=== PATIENT | female | born 1950 | race Caucasian/White ===

== ENCOUNTER 2023-09-27 11:52 | Emergency (ER) | payer MEDICARE, BC ==
[~2023-09-27] VITALS: Ht 154.9 cm; Wt 73.6 kg
[2023-09-27 11:57] VITALS: BP 128/66; PULSE 83; RESP 18; TEMP 97.8; O2SAT 98
[2023-09-27] MEDS ORDERED: IBUP-1984 PO (13:58)
--- NOTE | 2023-09-27 14:18 | NUR ---
MARINE MAMMAL TRAINER ASSESSMENT REVIEWED BY OLEG R[facility]; CS; APPROVED
== END 2023-09-27 14:53 | disposition home or self-care (01) ==
LOC: ER 11:53
DX: H00.15 Chalazion left lower eyelid (principal)
CPT/HCPCS: 99282

== ENCOUNTER 2024-02-08 14:41 | Emergency (ER) | payer MEDICARE, BC ==
[~2024-02-08] VITALS: Ht 152.4 cm; Wt 73.0 kg
[2024-02-08 14:53] VITALS: TEMP 99.5
[2024-02-08] MEDS ORDERED: CYCL-1 PO (16:59)
[2024-02-08] MEDS ORDERED: IBUP-1984 PO (16:59)
[2024-02-08] MEDS ORDERED: OXYC-145 PO (17:04)
[2024-02-08] MEDS: morphine 2 MG/ML inj. syringe IM ONE (17:49)
[2024-02-08] MEDS: ondansetron 4mg rapidly disintigrating tab PO ONE (17:50)
[2024-02-08 18:16] VITALS: BP 143/171; PULSE 64; RESP 16; O2SAT 97
== END 2024-02-08 18:20 | disposition home or self-care (01) ==
LOC: ER 14:43
DX: S42.151A Displaced fracture of neck of scapula, right shoulder, initial encounter for closed fracture (principal); W19.XXXA Unspecified fall, initial encounter; Y93.89 Activity, other specified; Y92.89 Other specified places as the place of occurrence of the external cause; Y99.8 Other external cause status
CPT/HCPCS: 71046; 71100; 72100; 72170; 73010; 96372; 99284; J2270; 99285; A4565

== ENCOUNTER → 2024-03-03 | Outpatient (CLI) | payer MEDICARE, BC ==
[~2024-03-03] MED LIST: CYCL-1 PO; OXYC-145 PO
== END | disposition home or self-care (01) ==
LOC: RAD 10:10
PROVIDERS: ATTEND Registered Nurse
DX: S22.39XA Fracture of one rib, unspecified side, initial encounter for closed fracture (principal); S22.008A Other fracture of unspecified thoracic vertebra, initial encounter for closed fracture; M54.51 Vertebrogenic low back pain; X58.XXXA Exposure to other specified factors, initial encounter; Y93.89 Activity, other specified; Y92.89 Other specified places as the place of occurrence of the external cause; Y99.8 Other external cause status
CPT/HCPCS: 71046; 72074

== ENCOUNTER 2025-11-02 18:49 | Inpatient (IN) | payer MEDICARE, BC ==
[~2025-11-02] VITALS: Ht 152.4 cm; Wt 55.9 kg
[2025-11-02] MEDS: normal saline 1000ML IV soln IVB ONE (20:10)
[2025-11-02] MEDS: ondansetron/PF 4mg/2ml inj IV ONE (20:17)
[2025-11-02 20:23] LABS: LEUKOCYTE ESTERASE ,URINE NEGATIVE (Neg); NITRITES, URINE NEGATIVE (Neg); OCCULT BLOOD,URINE LARGE (Neg)
[2025-11-02 20:25] LABS: MEAN PLATELET VOLUME 9.1 FL (7.4-10.4); RED CELL DISTRIBUTION WIDTH 13.3 % (11.5-14.5)
[2025-11-02 20:25] LABS: UA COLLECTION TYPE FOLEY CATH
[2025-11-02 20:46] LABS: MUCUS STRANDS MANY /LPF (Neg); SQUAMOUS EPITHELIAL CELL,UR FEW /LPF (FEW)
[2025-11-02 21:09] LABS: CREATININE 0.77 MG/DL (0.40-0.90); TOTAL CARBON DIOXIDE 25.6 MMOL/L (24-32); eCRCL 47 ML/MIN; eGFR 73 ML/MIN
[2025-11-02] MEDS: potassium Cl 20 mEq SR tablet PO STA (21:20)
[2025-11-02] MEDS: CefTRIAXone/D5W-Rocephin 1gm 50 ML IV ONE (23:34)
[2025-11-02] MEDS: morphine 4 MG/ML inj SYRINge IV ONE (23:39)
[2025-11-03] VITALS (8 sets, daily range): BP systolic 92–131; BP diastolic 50–73; PULSE 62–67; RESP 16–22; TEMP 97.4–98.9; O2SAT 95–100
[2025-11-03] MEDS: morphine 4 MG/ML inj SYRINge IV ONE (00:47)
[2025-11-03] MEDS ORDERED: iohexol 300mg/ml 100ml inj. ONE (00:58)
[2025-11-03] MEDS: ondansetron/PF 4mg/2ml inj IV ONE (01:02)
--- NOTE | 2025-11-03 01:59 | RADIOLOGY REPORT ---
Exam: CT CT ABDOMEN PELVIS W/ IV CONTRAST History: lower abd pain, hematuria Comparison Study: DI PELVIS,LIMITED 1-2 VIEWS on DOS: 02/08/24 TECHNIQUE: A digital yoga teacher image was obtained. During the uneventful, intravenous administration of contrast material, multislice data acquisition was obtained through the abdomen and pelvis. The data set was subsequently reconstructed into multiplanar reformats. RADIATION DOSE: CTDI vol 9.4 mGy. DLP 428.9 mGy.cm Findings: Lungs: Mild basilar atelectasis/ scarring. Liver: Unremarkable. Spleen: Scattered too small to characterize low attenuating splenic lesions. Pancreas: Unremarkable. Gallbladder: Unremarkable. Adrenals: Unremarkable Kidneys: 4 mm calculus situated in the distal right ureter near the ureterovesicular junction with moderate upstream hydroureteronephrosis and right perinephric stranding. Pelvic Viscera: Decompressed urinary bladder with a Kong catheter. Vasculature: Atherosclerotic aortoiliac calcification. Retroperitoneum: Unremarkable. Bowel: Colonic diverticulosis without CT evidence of diverticulitis. No bowel obstruction. Small hiatal hernia. Musculoskeletal: Chronic appearing lumbar compression deformities with multilevel vertebroplasty changes. Soft tissues: Unremarkable Impression: 1. 4 mm calculus situated in the distal right ureter near the ureterovesicular junction with moderate upstream hydroureteronephrosis and right perinephric stranding. 2. Additional findings as detailed.
[2025-11-03] MEDS ORDERED: ASPI-611 PO (02:31)
[2025-11-03] MEDS ORDERED: HYDR-3964 PO (02:31)
--- NOTE | 2025-11-03 03:24 | Physician Documentation ---
History of Present Illness ~ Chief Complaint: Urinary Retention Stated Complaint: URINARY RETENTION Time Seen by MD: 19:53 Primary Medical Doctor: DR BENTLEY Mode of Arrival: POV HPI This is a 75-year-old female, very pleasant, who presents for evaluation of inability to urinate, urinary frequency, urinary urgency, suprapubic bilateral flank abdominal pain. This symptom has been present for the last three days. Reports nausea and vomiting for the last two days. No obvious trigger provocation. The particular palliating or aggravating factors. Denies any fever or chills. The pain is sharp. She does not feel as radiating or migratory. Denies chest pain or difficulty breathing. No concern for tobacco, alcohol or illicit substances. Medication Reconciliation Allergies: Coded Allergies: No Known Allergies (Unverified , 11/02/25) Scheduled Aspirin (Aspir 81), 1 TAB PO DAILY, (Reported) Scheduled PRN Hydrocodone Bit/Acetaminophen (Hydrocodon-Acetaminophen 5-325), 1 TAB PO TID PRN for pain, (Reported) Discontinued Medications Cyclobenzaprine* (Cyclobenzaprine*), 1 TAB PO Q8H Discontinued Reason: patient no longer taking Oxycodone HCl/Acetaminophen (Percocet 5-325 mg Tablet), 1 TAB PO TID PRN PRN for glenoid fracture Discontinued Reason: patient no longer taking Past Medical History Smoking Status: Never smoker Review of Systems ROS 10 point review of systems was performed and unless noted above in HPI is negative for acute process/complaint. Physical Exam Vital Signs: Temperature: 98.1, Source: Oral, Heart Rate: 72, Respiratory Rate: 18, BP: 160/80, Pulse Oximetry: 97, Weight: 55.900 Physical Exam GENERAL: Awake, alert, oriented, GCS 15, no apparent distress, non-toxic appearing, answers questions, follows commands appropriately. Examined in bed 6. HEENT: Atraumatic, normocephalic, pupils equal, extraocular muscles intact, sclerae anicteric, mucus membranes moist, oropharynx is clear, no stridor. NECK: supple, full active range of motion, trachea midline, no thyromegaly, no lymphadenopathy, no JVD. CARDIOVASCULAR: regular rate/rhythm, no murmurs/gallops/rubs, Pulses are 2+ in all extremities and symmetric. Capillary refill less than 2 seconds. PULMONARY: Nonlabored, good air movement ,no respiratory distress, speaking in full sentences, clear to auscultation bilaterally, no wheezing, no ronchi, no rales, no accessory muscle use. GASTROINTESTINAL: Soft, non-tender, non-distended, normal active bowel sounds, no organomegaly, no pulsatile masses, no CVA tenderness. NEUROLOGIC: Lucid with normal mental status. Normal facial symmetry. Moves all extremities symmetrically and with purpose. No truncal ataxia. Speech is fluid without evidence of dysarthria or aphasia, no focal deficits appreciated. MUSCULOSKELETAL: There is full range of motion of all extremities. There is no joint pain or joint swelling or joint erythema. There is no muscle pain or tenderness or swelling. EXTREMITIES: warm, well-perfused, no cyanosis, no clubbing, no edema, no acute deformities. Skin: warm, dry, no rashes or lesions, no jaundice, no petechiae orpurpura. No ecchymosis. PSYCHIATRIC: Normal affect, normal insight, normal concentration. Focused exam: [] Progress Results/Orders Results/Orders Orders - NIOC PENNINGTON DO Saline Lock (11/02/25 19:53) Ct Abdomen Pelvis (11/03/25 00:46) Completed Orders - NICO PENNINGTON DO Cbc/Diff (11/02/25 19:53) MG (11/02/25 19:53) Normal Saline 1000ml (0.9% Sodium Chlori (11/02/25 19:55) CMP (11/02/25 19:53) Ondansetron Inj. (Zofran 4mg/2ml Vial) (11/02/25 19:55) Ua W/Microscopic, Cult If Ind (11/02/25 20:09) Potassium Cl Sr Tablet (K-Dur Tablet) (11/02/25 21:16) Ceftriaxone/G1d-Anhqjhtw 1gm (Rocephin 1 (11/02/25 23:20) Morphine 4mg/Ml Inj. (Morphine Inj.) (11/02/25 23:35) Morphine 4mg/Ml Inj. (Morphine Inj.) (11/03/25 00:35) Ct Abdomen Pelvis (11/03/25 00:46) Ondansetron Inj. (Zofran 4mg/2ml Vial) (11/03/25 01:00) Iohexol 300mg/Ml 100ml Inj. (Omnipaque-3 (11/03/25 00:58) Hydromorphone 1 Mg/Ml/Pf (Dilaudid Inj.) (11/03/25 02:20) Medications Received in ER Medications (Trade) Dose Ordered Sig/Anisha Route PRN Reason Start Time Stop Time Status Last Admin Dose Admin (0.9% sodium chloride (NS) 1000ml IV soln) 1,000 ml ONCE ONCE IVB 11/02/25 19:55 11/02/25 19:56 DC 11/02/25 20:10 1,000 ML (Zofran 4mg/2ml vial) 4 mg ONCE ONCE IV 11/02/25 19:55 11/02/25 19:56 DC 11/02/25 20:17 4 MG (K-DUR tablet) 40 meq ONCE STAT PO 11/02/25 21:16 11/02/25 21:17 DC 11/02/25 21:20 40 MEQ Ceftriaxone Sodium 50 ml @ 100 mls/hr ONCE ONCE IV 11/02/25 23:20 11/02/25 23:49 DC 11/02/25 23:34 100 MLS/HR (morphine inj.) 4 mg ONCE ONCE IV 11/02/25 23:35 11/02/25 23:36 DC 11/02/25 23:39 4 MG (morphine inj.) 4 mg ONCE ONCE IV 11/03/25 00:35 11/03/25 00:44 DC 11/03/25 00:47 4 MG (Zofran 4mg/2ml vial) 4 mg ONCE ONCE IV 11/03/25 01:00 11/03/25 01:01 DC 11/03/25 01:02 4 MG (Dilaudid inj.) 1 mg ONCE ONCE IV 11/03/25 02:20 11/03/25 02:21 DC 11/03/25 02:25 1 MG Vital Signs 11/02/25 11/02/25 11/02/25 11/02/25 18:58 19:03 20:47 23:09 Temp 98.1 Pulse 66 60 68 Resp 16 16 16 16 B/P (MAP) 133/62 138/68 (91) 122/68 (86) Pulse Ox 96 98 98 11/03/25 11/03/25 00:08 02:26 Pulse 64 72 Resp 16 18 B/P (MAP) 147/60 (89) 160/80 (106) Pulse Ox 98 97 Laboratory Tests Test 11/02/25 20:09 11/02/25 20:18 Urine Specimen Description Kong cath Urine Color Yellow Urine Clarity Slightly cloudy Urine pH 6.0 Urine Specific [place] >=1.030 Urine Protein Trace Urine Glucose (UA) Negative Urine Ketones 15 H Urine Occult Blood Large H Urine Nitrite Negative Urine Bilirubin Small Urine Urobilinogen 0.2 Urine Leukocyte Esterase Negative Urine RBC Tntc Urine WBC 0-4 Urine Squamous Epithelial Cells Few Urine Bacteria Few Urine Mucus Many Urine Culture Indicated Not ind Volume Urine Centrifuged 10 ml Urine Comment White Blood Count 10.0 Red Blood Count 3.88 L Hemoglobin 11.6 L Hematocrit 34.4 L Mean Corpuscular Volume 88.6 Mean Corpuscular Hemoglobin 29.9 Mean Corpuscular Hemoglobin Concent 33.8 Red Cell Distribution Width 13.3 Platelet Count 222 Mean Platelet Volume 9.1 Neutrophils (%) (Auto) 75.2 H Lymphocytes (%) (Auto) 14.4 L Monocytes (%) (Auto) 9.8 Eosinophils (%) (Auto) 0.1 Basophils (%) (Auto) 0.5 Neutrophils # (Auto) 7.5 Lymphocytes # (Auto) 1.4 Monocytes # (Auto) 1.0 H Eosinophils # (Auto) 0.0 Basophils # (Auto) 0.0 CBC Comment Sodium Level 143 Potassium Level 3.0 *L Chloride Level 108 H Carbon Dioxide Level 25.6 Anion Gap 9 Blood Urea Nitrogen 12 Creatinine 0.77 Estimated GFR/1.73 m2 73 BUN/Creatinine Ratio 15.6 Glucose Level 96 Calcium Level 8.8 Magnesium Level 2.2 Total Bilirubin 0.6 Aspartate Amino Transf (AST/SGOT) 22 Alanine Aminotransferase (ALT/SGPT) 26 Alkaline Phosphatase 98 Total Protein 7.0 Albumin 3.7 Globulin 3.3 Albumin/Globulin Ratio 1.1 Chemistry Comments Medical Decision Making Additional information obtaine: old records Findings Facility Status: ED Holds, [facility] process The plan was discussed with the patient, who demonstrates clear understanding of the plan and is in agreement with the plan unless otherwise noted in the chart. All questions have been answered, all concerns were addressed unless otherwise documented. I was available throughout their ED stay for frequent reassessment and questions. Differential Diagnoses (considered and possible or likely): [Urinary tract infection, pyelitis, pyelonephritis, infected stone, less likely emphysematous pyelonephritis, less likely emphysematous cystitis. Unlikely to represent acute intra-abdominal process requiring surgical intervention.] ??Differential Diagnoses (considered and unlikely, not requiring evaluation currently): [See above] MDM Data Please see HPI for the following: Independent Historians and external Records Review. Historian: [Patient] Independent Historians: ?[Record review] Medication Management: [Reviewed medication list] Social History and determinants: [Reviewed] Please see the body of the note for the following: Any independent interpretations of ECG, imaging studies. All vitals signs/haemodynamics, ordered tests were independently reviewed and interpreted by myself. Nursing triage complaint and vitals reviewed, additional nursing notes were reviewed as available and I agree unless otherwise noted or documented in contradiction in the chart Vital Signs: Independently reviewed Labs: Independently interpreted Imaging: Independently interpreted Old Medical Records: Independently reviewed, see HPI for relevant summary and information Pulse Oximetry: [97%] interpreted as [normal on room air] by me [Trimmer Climber: [Regular Rate, Regular rhythm, no ectopy, NSR] reviewed and interpreted by me] Additionally notably showing: [Hemodynamics reviewed. The patient isn't febri le, not tachycardic, no evidence of hypotension respiratory distress. CBC shows very mild anemia, no leukocytosis, 75% neutrophils, normal platelets. Chemistry shows mild hypokalemia. Normal renal function. Normal liver function. UA positive for large volume of occult blood, no white cells. At this point, of the Advanced imaging because I do not have the similar explanation. Advanced imaging shows 4 mm calculus in the distal right ureter at the UVJ. There was some perinephric stranding and hydroureter nephrosis.] Tests considered but not ordered include: [Not applicable] Social Determinants of Health Impact: Patient was evaluated in [facility], or [facility] [place] to healthcare due to below par ratio of patient to medical providers. [] Comorbid Conditions Impacting Present Evaluation and Care/Treatment: [See list] Management Discussions with other Healthcare Providers: [Hospitalist regarding admission] Treatment and Disposition Medication Management (Given or considered): [Nausea management and pain management]. See EMR for details Consideration for Hospitalization/Escalation/Deescalation of Care: Admission for observation has been considered, and appears to be necessary for further management of her intractable pain. ?ED Course:?[] ?Shared decision making:?[] Code status:?FULL Please see the full Electronic Medical Record for full details of nursing documentation, medications list, other records of complete past medical history and conditions, vital signs, laboratory studies, and any radiologic study interpretations by radiologists. Portions of this note were completed using Sprig dictation software and as a result there may exist minor errors in spelling. I have reviewed elements of past family and social history and agree as included in note. Urinary Diff Dx:Considerations: Include: Other (See body of main note for differential diagnosis) Genital Diff Dx:Considerations: Unlikely: Other Departure Disposition: 09 ADMITTED INPATIENT Impression: Primary Impression: Right kidney stone Additional Impressions: Hematuria Urinary retention Intractable pain Condition: Stable Referrals: NO PRIMARY CARE PROVIDER (PCP) Signature Scribe Signature: No scribe Attestation: The note accurately reflects work and decisions made by me.Nico Pennington DO 11/03/25 03:23 NICO PENNINGTON DO Nov 03, 2025 03:24
[2025-11-03] MEDS ORDERED: magnesium Cl slow-release 64mg tablet PO PRN (03:55)
[2025-11-03] MEDS ORDERED: mag hydrox/Alum hydrox/simeth 30ml oral suspension PO PRN (03:55)
[2025-11-03] MEDS ORDERED: HYDROmorphone inj. 0.5 MG/0.5 ML DISP.SYRIN IV PRN (03:55)
[2025-11-03] MEDS ORDERED: magnesium hydroxide 30ml (MOM) UD suspension PO PRN (03:55)
[2025-11-03] MEDS ORDERED: magnesium sulf-water 2g/50mL 50 ML IV PRN (03:55)
[2025-11-03] MEDS ORDERED: potassium Cl 20 mEq SR tablet PO PRN (03:55)
[2025-11-03] MEDS ORDERED: potassium Cl 40MEQ/1/2NS 520ml 520 ML IV PRN (03:55)
[2025-11-03] MEDS ORDERED: ondansetron/PF 4mg/2ml inj IV PRN (03:55)
[2025-11-03] MEDS ORDERED: HYDROmorphone/PF 0.2 MG/ML SYRINGE IV PRN (03:55)
[2025-11-03] MEDS ORDERED: magnesium sulf-water 4G/100mL 100 ML IV PRN (03:55)
--- NOTE | 2025-11-03 05:12 | HISTORY AND PHYSICAL-Residence ---
History & Physical Providers to CC Resident Creating Document: CESAR JORGE, RES ~ History of Present Illness Primary Medical Doctor: DR BENTLEY Reason for Admit\Complaint: Flank pain History of Present Illness A 75-year-old female presented to the ED with chief complaint of severe right- sided flank pain radiating into the groin and lower abdomen. The pain began on Wednesday and was initially intermittent, with a improvement the following day. However, over the past 24 hours the pain acutely worsened and became constant and severe. She also reports multiple episodes of vomiting and has had an inability to urinate since yesterday, though she denies dysuria, hematuria or fever. She has no prior history of kidney stones. Upon arrival, her vital signs were stable. She appeared uncomfortable due to pain. CT abdomen and pelvis revealed a 4 mm calculus located in the distal right ureter near the ureterovesicular junction, associated with moderate upstream hydroureteronephrosis and right perinephric stranding, consistent with obstruction. Primary care doctor: Aleja Chirinos Spine surgeon at [facility] Lives at home with the son and grandson Ambulates independently Allergies: Coded Allergies: No Known Allergies (Unverified , 11/02/25) Home Medications Home Medications Active Reported Aspir 81 (Aspirin) 81 Mg Tablet. 1 Tab PO DAILY 30 Days Hydrocodon-Acetaminophen 5-325 (Hydrocodone Bit/Acetaminophen) 5 Mg-325 Mg Tablet 1 Tab PO TID PRN Past Medical History Past Medical History Lower back pain Stroke 9 years ago Low heart rate status post pacemaker 6 years of Past Surgical History Surgical History Comment Back surgery Ankle and wrist surgeries Vertebroplasty Appendectomy Hysterectomy Past Social History Social History Comment Denied smoking, alcohol, illicit use of drugs ROS ROS Reviewed in full. All negative except for pertinent positive HPI. Exam Vitals: Vital Signs Date Time Temp Pulse Resp B/P (MAP) Pulse Ox O2 Delivery O2 Flow Rate FiO2 11/03/25 04:38 62 16 112/51 (71) 97 11/02/25 18:58 98.1 General: Awake , alert, and oriented x4, in mild distress due to pain HEENT: Atraumatic, normocephalic, EOMI, anicteric sclera ; pink conjunctiva Neck: Trachea midline. Supple, full range of motion, no JVD Cardiac: Regular rhythm, regular rate with no murmurs all over the precordium. Respiratory: Equal breath sounds bilaterally, no tachypnea, no wheezing ,rub or rales, Chest wall is symmetric and without deformity. Gastrointestinal: Abdomen symmetric, non-distended, soft, non-tender, normal bowel sounds x4 quadrant, normoactive, no hepatosplenomegaly Musculoskeletal: No pedal edema, no cyanosis Neurological: Mental status exam: alert and consciousness, orientation, memory, speech - Cranial nerve test: Cranial nerves 2-12 intact - Motor system: Nutrition, Tone 3+, Power 5/5, no involuntary movements - Sensory system: Intact - Reflex testing: Biceps, triceps and knee reflexes 2+ - Cerebellar: Normal Skin: Warm and dry Diagnostic Data Last Recorded Lab Results: 11/02/25201711/02/252017 Advance Care Planning Advanced Care plannin - 30 Minutes Additional Plan 1. Right Distal Ureteral Stone (4 mm) with Moderate Hydroureteronephrosis & Perinephric Stranding CT shows a 4 mm distal right ureteral calculus near UVJ Associated moderate hydroureteronephrosis and perinephric fat stranding, suggesting obstruction with possible early inflammation Pain severe but vitals stable No fever, no leukocytosis, UA shows occult blood; Nausea/vomiting and inability to void yesterday Plan IV fluids NS at 100 cc/hour Analgesia: IV ketorolac and opioids for breakthrough pain Tamsulosin 0.4 mg daily to assist passage Antiemetics as needed 2. Hypokalemia (K 3.0) Mild hypokalemia likely secondary to vomiting and decreased intake Plan Replace potassium per protocol Recheck BMP Encourage oral hydration 3. Nausea/Vomiting & Poor PO Intake Likely secondary to obstructing stone Risk of dehydration and electrolyte abnormalities Plan IV fluids PRN ondansetron Gradual PO challenge 4. Inability to Urinate (yesterday) Most likely pain-associated urinary hesitancy Currently stable, but must monitor closely Plan Bladder scan If insurance persistent consider Kong catheter 5. Normocytic Anemia (Hb 11.6) No acute bleeding. Not contributory to current presentation Plan Outpatient follow-up with PCP Disposition Hemodynamically stable but symptomatic , needs pain control Code Status: I spent a total of 17 minutes on reviewing various resuscitative measures with the patient at the time of admission. The patient has decided on a full code status. DVT Prophylaxis: Heparin SQ Cesar Jorge MD Internal Medicine Resident, PGY-2 Plan reviewed with bedside team. Patient seen through remote audiovisual assessment through HIPAA compliant setup. All labs, flowsheets, and images reviewed Cumulative nonprocedural care time spent in directed patient care = 30 min Date of Service: Nov 03, 2025 Billing Provider: DAY REINOSO MD KARLA PAINTERV, RES Nov 03, 2025 05:12 DAY REINOSO MD Nov 03, 2025 06:36
[2025-11-03] MEDS ORDERED: ketorolac trometh 30MG/ML vial 30 MG/ML VIAL IM PRN (05:15)
[2025-11-03] MEDS: normal saline 1000ml 1,000 ML IV SCH (05:27)
[2025-11-03] MEDS: K and/or MAG REPLACEMENT MC SCH (08:00)
[2025-11-03] MEDS: heparin, porcine 5000 units/ml vial SQ SCH (08:05)
[2025-11-03] MEDS: docusate sod 100mg capsule PO SCH (08:06)
--- NOTE | 2025-11-03 20:21 | PROGRESS NOTE ---
Daily Progress Note Providers to CC ~ Antibiotic Timeout Antibiotic Ordered?: Yes Subjective Was seen in presence of her today. Patient mentioned to me that she has mild discomfort over right CVA angle when I examined her. Urology consultation requested from Dr. Phelps who evaluated the patient today in as per Urology specialist she elected to continue trial of spontaneous stone passage. She recommended to continue patient on hydration Flomax and strain urine. Dr. Phelps recommended to remove Kong early in the morning. Monitor post void residuals tomorrow to ensure bladder emptying. If doing well tomorrow, may consider discharge home with outpatient follow up in 1-2 months Objective Vital Signs Date Time Temp Pulse Resp B/P (MAP) Pulse Ox O2 Delivery O2 Flow Rate FiO2 11/03/25 11:13 18 100 Room Air 11/03/25 10:00 97.4 63 114/50 (71) Result Diagram: 11/02/25201711/03/25 0741 General-patient not in any acute distress, alert awake oriented, age- appropriate, looks comfortable HEENT-atraumatic normocephalic, neck supple without elevated JVD, no thyromegaly or carotid bruit. No lymphadenopathy bilaterally. Eyes-no icterus or pallor seen in eyes Chest-clear to auscultation bilaterally, breathing nonlabored no tachypnea, no wheezing, no crepitation, no crackles. Heart-S1-S2 normal, regular heart rate no murmur Abdomen bowel sounds positive on auscultation, soft nondistended nontender, mild right CVA tenderness noticed on palpation no guarding, no rigidity Skin no active skin rash Neurology-grossly intact, nonfocal alert awake oriented Extremity- no pedal edema able to move all 4 extremities/ambulate Psychiatry - patient is not confused or agitated cooperated during physical examination Problem\Assessment\Plan 1. Right Distal Ureteral Stone (4 mm) with Moderate Hydroureteronephrosis & Perinephric Stranding CT shows a 4 mm distal right ureteral calculus near UVJ Associated moderate hydroureteronephrosis and perinephric fat stranding, suggesting obstruction with possible early inflammation Pain severe but vitals stable No fever, no leukocytosis, UA shows occult blood; Nausea/vomiting and inability to void yesterday Plan IV fluids NS at 100 cc/hour Analgesia: IV ketorolac and opioids for breakthrough pain Tamsulosin 0.4 mg daily to assist passage Antiemetics as needed 11/03- Urology consultation requested from Dr. Phelps who evaluated the patient today in as per Urology specialist she elected to continue trial of spontaneous stone passage. She recommended to continue patient on hydration Flomax and strain urine. Dr. Phelps recommended to remove Kong early in the morning. Monitor post void residuals tomorrow to ensure bladder emptying. If doing well tomorrow, may consider discharge home with outpatient follow up in 1-2 months 2. Hypokalemia (K 3.0)-resolved Mild hypokalemia likely secondary to vomiting and decreased intake Plan Replaced potassium per protocol will Recheck BMP Encourage oral hydration 3. Nausea/Vomiting & Poor PO Intake Risk of dehydration and electrolyte abnormalities Plan IV fluids PRN ondansetron Gradual PO challenge 4. Inability to Urinate (yesterday) will monitor Plan Bladder scan If insurance persistent consider Kong catheter 5. Normocytic Anemia (Hb 11.6) No acute bleeding. Not contributory to current presentation Patient's current condition is guarded we will continue to follow patient in AM Date of Service: Nov 03, 2025 Billing Provider: FLORINDA PADRON MD Common Visit Codes: [id number] INP/OBS CARE(HIGH) FLORINDA PADRON MD Nov 03, 2025 20:21
--- NOTE | 2025-11-03 20:26 | CONSULTATION REPORT ---
History of Present Illness Providers to CC ~ Reason for Admit\Admit Dx: right flank/abdominal pain, right ureteral stone Refering MD: Dr. Bartlett History of Present Illness 75yo F with history of HTN, stroke, pacemaker, and no prior history of kidney stones admitted with right flank/abdominal pain and 4mm right distal ureteral stone. Symptoms started a few days ago and associated symptoms include N/V, urinary urgency, frequency, and difficulty urinating. Workup in ER included normal WBC and Creatinine. UA negative for infection. CT abd pelvis shows 4mm right distal ureteral stone with mild hydronephrosis. A markham catheter was placed in the ER due to concern for urinary retention, although the patient states that there was not much urine that drained from the markham when initially placed. She has been feeling better without pain since last night and not requiring pain medication. There has not been any stone seen in her urine so far. We discussed management options and she wishes to proceed with trial of spontaneous stone passage for now. Allergies: Coded Allergies: No Known Allergies (Unverified , 11/02/25) Home Medications Home Medications Active Reported Aspir 81 (Aspirin) 81 Mg Tablet.dr 1 Tab PO DAILY 30 Days Hydrocodon-Acetaminophen 5-325 (Hydrocodone Bit/Acetaminophen) 5 Mg-325 Mg Tablet 1 Tab PO TID PRN Past Medical History Medical History Comment HTN, stroke Past Surgical History Surgical History Comment hysterectomy, orthopedic surgeries, pacemaker Past Family History Family History Comment noncontributory Past Social History Social History Comment , lives with Physical Exam Last Vital Signs Recorded: Temperature: 97.4, Source: Oral, Heart Rate: 63, Respiratory Rate: 18, BP: 114/50, Pulse Oximetry: 100, Weight: 55.900 Results Diagram Lab Result Diagram: 11/02/25201711/03/25 0741 Assessment/Plan Problems/Diagnosis: (1) Right ureteral calculus Assessment & Plan: 75yo F with no prior history of stones presenting with right flank/abdominal pain and lower urinary tract symptoms secondary to 4mm right distal ureteral stone - Labs and imaging reviewed, as above, and discussed with patient - Pain improved since last night, but stone has not passed in the urine - We discussed stone management options including trial of spontaneous stone passage versus surgical intervention. We discussed right ureteroscopic stone extraction and ureteral stent placement including details of the procedure, risks, benefits, alternatives - She elected to continue trial of spontaneous stone passage - Continue hydration, flomax, strain urine. If stone is collected, we will send to pathology for stone analysis - Markham catheter placed in ER presumably due to urinary complaints and concern for retention, although patient states that a small urine volume drained from the markham at time of placement. I suspect her urinary symptoms were attributed to the distal ureteral stone rather than urinary retention - Remove markham for voiding trial early in the morning. Monitor post void residuals tomorrow to ensure bladder emptying - If doing well tomorrow, may consider discharge home with outpatient follow up in 1-2 months MARY REYNOLDS MD Nov 03, 2025 20:26
[2025-11-04 06:00] VITALS: BP 130/59; PULSE 70; RESP 14; TEMP 98.6; O2SAT 96
[2025-11-04 07:36] LABS: MEAN PLATELET VOLUME 10.0 FL (7.4-10.4); RED CELL DISTRIBUTION WIDTH 13.6 % (11.5-14.5)
[2025-11-04 08:00] VITALS: RESP 14; O2SAT 96
[2025-11-04 08:56] LABS: CREATININE 0.56 MG/DL (0.40-0.90); TOTAL CARBON DIOXIDE 24.6 MMOL/L (24-32); eCRCL 64 ML/MIN; eGFR > 90 ML/MIN
[2025-11-04] MEDS ORDERED: tamsulosin capsule PO (09:47)
[2025-11-04] MEDS: potassium Cl 20 mEq SR tablet PO PRN (10:50)
--- NOTE | 2025-11-04 10:59 | PROGRESS NOTE ---
Progress Progress Note: No recurrent right flank/abdominal pain, but still has not seen the stone pass in the urine. She does mention that she had diarrhea/loose BMs overnight, and was unable to strain her urine every time she voided. Markham was removed around midnight, and she is voiding without difficulty. She did develop chest pain this morning. EKG reportedly showed sinus rhythm, and she is being evaluated by the hospitalists. Problem\Assessment\Plan Problems/Diagnosis: (1) Right ureteral calculus Assessment & Plan: 75yo F with no prior history of stones presenting with right flank/abdominal pain and lower urinary tract symptoms secondary to 4mm right distal ureteral stone - Acute chest pain this morning. Workup and management per hospitalist - WBC and Cr normal - Right flank pain improved/resolved for >24 hours, but she has not seen any stone pass in the urine. We did discuss that pain from ureteral stones may be intermittent, and it may take several weeks to pass a stone - We discussed stone management options including trial of spontaneous stone passage versus surgical intervention. We discussed right ureteroscopic stone extraction and ureteral stent placement including details of the procedure, risks, benefits, alternatives - She elected to continue trial of spontaneous stone passage as outpatient - Continue hydration, flomax, strain urine. If stone is collected, we will send to pathology for stone analysis - Markham catheter placed in ER presumably due to urinary complaints and concern for retention, although patient states that a small urine volume drained from the markham at time of placement. Markham removed this morning for voiding trial. Monitor post void residuals to ensure bladder emptying - From a urologic standpoint, she is ok for discharge home today. Recommend discharge home on flomax 0.4mg daily x30 days and PRN narcotic pain medication. I did encourage her to use narcotics for breakthrough pain only if OTC ibuprofen/tylenol is not sufficient. She was instructed to return to the ER if fever, chills, persistent N/V or inability to tolerate PO, severe pain not controlled by medications - Will arrange outpatient follow up in 1-2 months, or earlier PRN Results/Orders Result Diagram: 11/04/25 0656 11/04/25655 Dietary Evaluation Comments: S 11/08 Will provide full nutrition assessment on above date. MARY REYNOLDS MD Nov 04, 2025 10:59
--- NOTE | 2025-11-04 18:45 | DISCHARGE SUMMARY ---
Discharge Summary Providers to CC ~ Discharge Summary Admission Diagnosis: Renal CAlculi Hospital Course DATE OF ADMISSION: 11/03/25 DATE OF DISCHARGE: 11/04/25 CBC testing done on November 04/2025 WBC 7.3 hemoglobin 10.9 hematocrit 32.2. CMP done on November 04, 2025 sodium 144 potassium 3.3 which was treated during hospitalization creatinine 0.56 GFR greater is and 90 normal liver enzymes. Troponin 7.0, urine testing done on November 02, 2020 5- for any UTI CT ABDOMEN PELVIS4 mm calculus situated in the distal right ureter near the ureterovesicular junction with moderate upstream hydroureteronephrosis and right perinephric stranding.Chronic appearing lumbar compression deformities with multilevel vertebroplasty changes. Discharge Diagnosis\\Comment: Right Distal Ureteral Stone (4 mm) with Moderate Hydroureteronephrosis & Perinephric Stranding, Hypokalemia treated , Nausea/Vomiting resolved Normocytic Anemia (Hb 11.6) Operations\\Procedures: None Consultants: Dr Phelps, urology specialist Complications: None Condition on DC: Stable New Medications: [tamsulosin capsule] () 0.4 MG CAP 0.4 MG PO HS for 30 Days, #30 Continued Medications: Aspirin (Aspir 81) 81 Mg Tablet. 1 TAB PO DAILY for 30 Days, #30 TAB Hydrocodone Bit/Acetaminophen (Hydrocodon-Acetaminophen 5-325) 5 Mg-325 Mg Tablet 1 TAB PO TID PRN for pain Discharge Summary: As per admitting provider's history and physical note " A 75-year-old female presented to the ED with chief complaint of severe right-sided flank pain radiating into the groin and lower abdomen. The pain began on Wednesday and was initially intermittent, with a improvement the following day. However, over the past 24 hours the pain acutely worsened and became constant and severe. She also reports multiple episodes of vomiting and has had an inability to urinate since yesterday, though she denies dysuria, hematuria or fever. She has no prior history of kidney stones. Upon arrival, her vital signs were stable. She appeared uncomfortable due to pain. CT abdomen and pelvis revealed a 4 mm calculus located in the distal right ureter near the ureterovesicular junction, associated with moderate upstream hydroureteronephrosis and right perinephric stranding, consistent with obstruction. During hospitalization patient was treated for 1. Right Distal Ureteral Stone (4 mm) with Moderate Hydroureteronephrosis & Perinephric Stranding CT shows a 4 mm distal right ureteral calculus near UVJ Associated moderate hydroureteronephrosis and perinephric fat stranding, suggesting obstruction with possible early inflammation Pain severe but vitals stable No fever, no leukocytosis, UA shows occult blood; Nausea/vomiting and inability to void yesterday Plan IV fluids NS at 100 cc/hour Analgesia: IV ketorolac and opioids for breakthrough pain Tamsulosin 0.4 mg daily to assist passage Antiemetics as needed 11/03- Urology consultation requested from Dr. Phelps who evaluated the patient today in as per Urology specialist she elected to continue trial of spontaneous stone passage. She recommended to continue patient on hydration Flomax and strain urine. Dr. Phelps recommended to remove Kong early in the morning. Monitor post void residuals tomorrow to ensure bladder emptying. If doing well tomorrow, may consider discharge home with outpatient follow up in 1-2 months 2. Hypokalemia (K 3.0)-resolved Mild hypokalemia likely secondary to vomiting and decreased intake Plan Replaced potassium per protocol will Recheck BMP Encourage oral hydration 3. Nausea/Vomiting & Poor PO Intake Risk of dehydration and electrolyte abnormalities Plan IV fluids PRN ondansetron Gradual PO challenge 4. Inability to Urinate -resolved will monitor Plan Bladder scan If insurance persistent consider Kong catheter 5. Normocytic Anemia (Hb 11.6) No acute bleeding. Not contributory to current presentation 6..Chest pain troponin unremarkable likely musculoskeletal in nature 7. Chronic pain syndrome Chronic appearing lumbar compression deformities with multilevel vertebroplasty changes- patient is on narcotic medication for pain relief at home Patient is feeling better she has been afebrile and getting discharged home in s table condition. Dr. Phelps is okay to discharge the patient today and she evaluated the patient in hospital. Patient is seen and examined on the day of discharge. All labs, diagnostic workup and discharge plan discussed with patient and family members in detail before her discharge. All questions and queries answered to the best of my professional medical knowledge. I heard patient's concerns and address appropriately. Patient was cleared by Physical therapy team for home discharge. associate manager affiliate marketing involved in patient's discharge plan. Discharge instructions provided to the patient Please follow-up Dr Phelps outpatient follow up in 1-2 months , follow up with PCP repeat CBC BMP sed rate and procalcitonin in five days. Continue hydration, flomax, strain urine. Increase oral fluid more than 1500 mL per day. Further Pain medication refills per PCP. General-patient not in any acute distress, alert awake oriented, age- appropriate, looks comfortable HEENT-atraumatic normocephalic, neck supple without elevated JVD, no thyromegaly or carotid bruit. No lymphadenopathy bilaterally. Eyes-no icterus or pallor seen in eyes Chest-clear to auscultation bilaterally, breathing nonlabored no tachypnea, no wheezing, no crepitation, no crackles. Heart-S1-S2 normal, regular heart rate no murmur Abdomen bowel sounds positive on auscultation, soft nondistended nontender, mild right CVA tenderness noticed on palpation no guarding, no rigidity Skin no active skin rash Neurology-grossly intact, nonfocal alert awake oriented Extremity- no pedal edema able to move all 4 extremities Psychiatry - patient is not confused or agitated cooperated during physical examination *Problems/Diagnosis: (1) Right ureteral calculus Total Time Spent on D/C: > 30 Minutes Date of Service: Nov 04, 2025 Billing Provider: FLORINDA PADRON MD Common Visit Codes: 87825-ABL/OBS DISCH DAY >30min FLORINDA PADRON MD Nov 04, 2025 18:38
--- NOTE | 2025-11-05 11:32 | ELECTROCARDIOGRAPH REPORT ---
[facility] Test Date: 2025-11-04 Test Time: 10:24:40 Pat Name: CARISSA THOMAS Department: 3rd FLOOR PCU Room: [address] Gender: F [employer] Wood: : 1950 Requested By: FLORINDA PADRON Order Number: [id number] Reading MD: Dr. Lisandra Eric Measurements Intervals Caspian Rate: 71 P: 41 NE: 133 QRS: -6 QRSD: 94 T: 38 QT: 438 QTc: 476 Interpretive Statements Age not entered, assumed to be 52 years old for purpose of ECG interpretation Sinus rhythm Low voltage, extremity and precordial leads Electronically Signed On 11-05-2025 19:57:[address] Lisandra Eric Please click the below link to view image of tracing.
[2025-11-06 05:13] LABS: HBSAG SCREEN Negative (Negative); HEP B CORE AB, IGM Negative (Negative); HEP B CORE AB, TOT Positive (Negative)
== END 2025-11-04 13:22 | disposition home or self-care (01) | DRG 694 ==
LOC: ER 18:49 → ED HOLD 11-03 03:57 → SUR 3N 11-03 04:55
PROVIDERS: ADMIT Internal Medicine; ATTEND Internal Medicine
PROC: BW211ZZ Computerized Tomography (CT Scan) of Abdomen and Pelvis using Low Osmolar Contrast (ICD-10-PCS; principal; 2025-11-03)
DX: N13.2 Hydronephrosis with renal and ureteral calculous obstruction (principal); D64.9 Anemia, unspecified; I10 Essential (primary) hypertension; E87.6 Hypokalemia; G89.4 Chronic pain syndrome; Z86.73 Personal history of transient ischemic attack (TIA), and cerebral infarction without residual deficits; Z90.710 Acquired absence of both cervix and uterus
CPT/HCPCS: 36415; 74177; 80053; 81001; 83735; 84132; 84484; 85025; 86704; 86705; 87081; 87340; 93005; 99285; A4314; A6449; G0378; J0696; J1171; J1644; J2270; J2405; J7030; Q9967